=== PATIENT | female | born 1975 | race Caucasian/White ===

== ENCOUNTER 2018-10-05 08:46 | Emergency (ER) | payer MEDICAID, OTHER ==
[~2018-10-05] VITALS: Ht 170.2 cm; Wt 81.6 kg
[2018-10-05 08:56] VITALS: BP 124/87
== END 2018-10-05 09:06 | disposition home or self-care (01) ==
LOC: ER 08:46
DX: K08.89 Other specified disorders of teeth and supporting structures (principal); F17.200 Nicotine dependence, unspecified, uncomplicated

== ENCOUNTER 2024-09-24 06:54 | Emergency (ER) | payer OTHER | END 2024-09-24 08:11 | disposition left against medical advice (07) | LOC: ER 06:58 | DX: T14.8XXA Other injury of unspecified body region, initial encounter (principal); Z53.21 Procedure and treatment not carried out due to patient leaving prior to being seen by health care provider; X58.XXXA Exposure to other specified factors, initial encounter ==